=== PATIENT | female | born 1965 | race Caucasian/White ===

== ENCOUNTER 2018-04-30 00:36 | Emergency (ER) | payer OTHER ==
[~2018-04-30] VITALS: Ht 154.9 cm; Wt 72.6 kg
[~2018-04-30 00:36] MED LIST: FLEXERIL10 MG PO; NABUMETONE750 MG PO; PREDNISONE5 MG/DOSE- PO
[2018-04-30] MEDS ORDERED: KETO10TA2 PO (02:33)
== END 2018-04-30 13:58 | disposition home or self-care (01) ==
LOC: ER 00:36
DX: M25.512 Pain in left shoulder (principal)

== ENCOUNTER 2018-12-25 18:13 | Emergency (ER) | payer OTHER ==
[~2018-12-25] VITALS: Ht 154.9 cm; Wt 70.8 kg
[~2018-12-25 18:13] MED LIST changes: +KETO10TA2 PO
[2018-12-25] MEDS ORDERED: ORPHENADRINE C100 MG PO (19:34)
[2018-12-25] MEDS ORDERED: CYCLOBENZAPRINE10 MG PO (19:34)
[2018-12-25] MEDS ORDERED: KETO10TA2 PO (19:34)
[2018-12-25] MEDS ORDERED: ULTRACET PO (19:34)
== END 2018-12-25 19:48 | disposition home or self-care (01) ==
LOC: ER 18:13
DX: M75.51 Bursitis of right shoulder (principal)

== ENCOUNTER 2019-01-31 20:02 | Emergency (ER) | payer OTHER ==
[~2019-01-31] VITALS: Ht 154.9 cm; Wt 69.9 kg
[~2019-01-31 20:02] MED LIST changes: +CYCLOBENZAPRINE10 MG PO; +ORPHENADRINE C100 MG PO; +ULTRACET PO
[2019-01-31] MEDS ORDERED: FORTAMET500 MG PO (20:56)
[2019-01-31] MEDS ORDERED: LIPITOR40 MG (20:56)
[2019-01-31] MEDS ORDERED: OSTERA TABLET1 EACH PO (20:57)
== END 2019-01-31 23:04 | disposition home or self-care (01) ==
LOC: ER 20:02
DX: N30.80 Other cystitis without hematuria (principal)